=== PATIENT | male | born 1965 | race American Indian/Alaskan Native ===

== ENCOUNTER 2021-11-04 07:22 | Emergency (ER) | payer SELFPAY ==
[2021-11-04 07:51] LABS: Basophils % (Auto) 0.7 % (0.0-1.8); Eosinophils # (Auto) 0.1 K/mm3 (0.0-0.4); Eosinophils % (Auto) 1.6 % (0.0-4.3); Hematocrit 41.5 % (35.5-45.6); Hemoglobin 14.1 gm/dl (11.8-15.2); Lymphocytes # (Auto) 1.2 K/mm3 (1.2-5.4); Lymphocytes % (Auto) 26.4 % (13.4-35.0); Mean Corpuscular HGB Conc 34 % (32-34); Mean Corpuscular Volume 85 fl (84-94); Monocytes # (Auto) 0.4 K/mm3 (0.0-0.8); Monocytes % (Auto) 8.8 % (0.0-7.3); Platelet Count 269 K/mm3 (140-440); Red Blood Count 4.88 M/mm3 (3.65-5.03); Red Cell Distribution Width 14.4 % (13.2-15.2)
[2021-11-04 08:03] LABS: INR 0.94 (0.87-1.13)
[2021-11-04 08:04] LABS: Partial Thromboplastin Time 27.9 Sec. (24.2-36.6)
[2021-11-04 08:14] LABS: Alanine Aminotransferase 10 units/L (7-56); Albumin 4.8 g/dL (3.9-5); Blood Urea Nitrogen 13 mg/dL (9-20); Calcium 9.3 mg/dL (8.4-10.2); Hemolysis Index 9
[2021-11-04 08:21] LABS: BUN/Creatinine Ratio 19
--- NOTE | 2021-11-04 09:51 | Emergency Department Report ---
ED General Adult HPI - General Chief complaint: Extremity Problem,Nontraumatic Stated complaint: LEFT LEG PAIN PUI?: No Time Seen by Provider: 11/04/21 09:33 Source: patient Mode of arrival: Ambulatory Limitations: No Limitations - History of Present Illness Initial comments: Mr. Hanson is a 56-year-old male that comes to the emergency room complaining of calf pain. He has no swelling or redness or tenderness. Protocol labs and ultrasound were placed overnight. Patient denies any fall, trauma or injury that would explain his leg pain. On exam this morning patient is complaining of calf pain. There is no Homans' sign. There is no swelling. He is peripheral vascularly and neurovascularly intact. His ultrasound is negative. His labs are normal. Patient denies any other symptoms. Denies fever or chills. Denies chest pain or shortness of breath. He denies any recent travel. He is not obese. -: Gradual, days(s) Location: lower extremity Severity scale (0 -10): 3 Quality: aching Consistency: constant Improves with: none Worsens with: none Associated Symptoms: denies other symptoms Treatments Prior to Arrival: none - Related Data Previous Rx's Medication Instructions Recorded Last Taken Type Ibuprofen [Motrin] 800 mg PO Q8HR PRN #30 tablet 11/04/21 Unknown Rx Allergies Allergy/AdvReac Type Severity Reaction Status Date / Time No Known Allergies Allergy Verified 11/04/21 07:31 ED Review of Systems ROS: Stated complaint: LEFT LEG PAIN Other details as noted in HPI Comment: All other systems reviewed and negative ED Past Medical Hx - Past Medical History Previous Medical History?: No - Surgical History Past Surgical History?: No - Family History Family history: no significant - Social History Smoking Status: Current Every Day Smoker Substance Use Type: None - Medications Home Medications: Home Medications Medication Instructions Recorded Confirmed Last Taken Type Ibuprofen [Motrin] 800 mg PO Q8HR PRN #30 tablet 11/04/21 Unknown Rx ED Physical Exam - General Limitations: No Limitations General appearance: alert, in no apparent distress - Head Head exam: Present: atraumatic, normocephalic - Eye Eye exam: Present: normal appearance - ENT ENT exam: Present: mucous membranes moist - Neck Neck exam: Present: normal inspection - Respiratory Respiratory exam: Present: normal lung sounds bilaterally. Absent: respiratory distress - Cardiovascular Cardiovascular Exam: Present: regular rate, normal rhythm. Absent: systolic mur mur, diastolic murmur, rubs, gallop - GI/Abdominal GI/Abdominal exam: Present: soft, normal bowel sounds - Rectal Rectal exam: Present: deferred - Extremities Exam Extremities exam: Present: normal inspection - Back Exam Back exam: Present: normal inspection - Neurological Exam Neurological exam: Present: alert, oriented X3 - Psychiatric Psychiatric exam: Present: normal affect, normal mood - Skin Skin exam: Present: warm, dry, intact, normal color. Absent: rash ED Course Vital Signs 11/04/21 11/04/21 07:26 10:37 Temperature 98.9 F Pulse Rate 63 68 Respiratory 16 Rate Blood Pressure 118/88 Blood Pressure 118/84 [Left] O2 Sat by Pulse 98 Oximetry ED Medical Decision Making - Lab Data Result diagrams: 11/04/21 07:39 11/04/21 07:39 - Radiology Data Radiology results: report reviewed, image reviewed us neg dvt - Medical Decision Making Vital Signs 11/04/21 07:26 Temperature 98.9 F Pulse Rate 63 Respiratory 16 Rate Blood Pressure 118/88 O2 Sat by Pulse 98 Oximetry Lab Results 11/04/21 11/04/21 11/04/21 Range/Units 07:39 07:39 07:39 WBC 4.4 L (4.5-11.0) K/mm3 RBC 4.88 (3.65-5.03) M/mm3 Hgb 14.1 (11.8-15.2) gm/dl Hct 41.5 (35.5-45.6) % MCV 85 (84-94) fl MCH 29 (28-32) pg MCHC 34 (32-34) % RDW 14.4 (13.2-15.2) % Plt Count 269 (140-440) K/mm3 Lymph % (Auto) 26.4 (13.4-35.0) % Custer % (Auto) 8.8 H (0.0-7.3) % Eos % (Auto) 1.6 (0.0-4.3) % Baso % (Auto) 0.7 (0.0-1.8) % Lymph # (Auto) 1.2 (1.2-5.4) K/mm3 Custer # (Auto) 0.4 (0.0-0.8) K/mm3 Eos # (Auto) 0.1 (0.0-0.4) K/mm3 Baso # (Auto) 0.0 (0.0-0.1) K/mm3 Seg Neutrophils % 62.5 (40.0-70.0) % Seg Neutrophils # 2.7 (1.8-7.7) K/mm3 PT 13.6 (12.2-14.9) Sec. INR 0.94 (0.87-1.13) APTT 27.9 (24.2-36.6) Sec. Sodium 143 (137-145) mmol/L Potassium 4.0 (3.6-5.0) mmol/L Chloride 109.0 H (98-107) mmol/L Carbon Dioxide 22 (22-30) mmol/L Anion Gap 16 mmol/L BUN 13 (9-20) mg/dL Creatinine 0.7 L (0.8-1.3) mg/dL Estimated GFR > 60 ml/min BUN/Creatinine Ratio 19 % Glucose 100 (75-100) mg/dL Calcium 9.3 (8.4-10.2) mg/dL Total Bilirubin 1.50 H (0.1-1.2) mg/dL AST 16 (5-40) units/L ALT 10 (7-56) units/L Alkaline Phosphatase 63 (35-129) units/L Total Protein 7.5 (6.3-8.2) g/dL Albumin 4.8 (3.9-5) g/dL Albumin/Globulin Ratio 1.8 % US neg no homans ambulatory achilles intact calf soft dp/pt plus 3 foot warm sensation intact All labs noted to be normal. Patient advised to take an aspirin daily. I have encouraged him to take NSAIDs for his pain. However, he did not like that and was requesting narcotics. I told him we would not treat this with narcotics. Patient is ambulatory, nontoxic [id number] on discharge. Patient discharged home with discharge plan of care including diet, activity, medications and follow-up. - Differential Diagnosis ro dct Critical care attestation.: If time is entered above; I have spent that time in minutes in the direct care of this critically ill patient, excluding procedure time. ED Disposition Clinical Impression: Pain of left calf Disposition: HOME / SELF CARE / HOMELESS Is pt being admited?: No Does the pt Need Aspirin: No Condition: Stable Additional Instructions: Take 81 mg aspirin by mouth daily. [id number] Motrin and Tylenol can be used for any pain or discomfort. Warm compresses and elevating leg can also help. All labs and ultrasound of the leg were normal today. Diet and activity as tolerated Follow-up with PCP. Have given you referral before. Prescriptions: Ibuprofen [Motrin] 800 mg PO Q8HR PRN #30 tablet PRN Reason: Pain, Moderate (4-6) Referrals: REGINA HARTMAN MD [Primary Care Provider] - 3-5 Days Forms: Work/School Release Form(ED) Time of Disposition: 09:54
[2021-11-04 10:37] VITALS: BP 118/84
--- NOTE | 2021-11-04 11:47 | Vascular Lab Report ---
DUPLEX DOPPLER LOWER EXTREMITY VEINS, LEFT INDICATION / CLINICAL INFORMATION: rule out DVT. TECHNIQUE: Duplex doppler imaging was performed through the veins of the left lower extremity using v enous compression and other maneuvers. COMPARISON: None available. FINDINGS: LEFT COMMON FEMORAL VEIN: Negative. LEFT FEMORAL VEIN: Negative. LEFT POPLITEAL VEIN: Negative. LEFT CALF VEINS: Negative. ADDITIONAL FINDINGS: None. IMPRESSION: 1. No sonographic evidence for DVT in the left lower extremity. Signer Name: Bora Valencia DO Signed: 11/04/2021 8:38 AM Workstation Name: [id number]
== END 2021-11-04 10:37 | disposition home or self-care (01) ==
LOC: ED 07:22
DX: M79.605 Pain in left leg (principal); F17.200 Nicotine dependence, unspecified, uncomplicated; Z79.899 Other long term (current) drug therapy
CPT/HCPCS: 36415; 80053; 85025; 85610; 85730; 99284